=== PATIENT | female | born 1955 | race Caucasian/White ===

== ENCOUNTER 2017-05-11 22:43 | Inpatient (IN) | payer OTHER ==
[~2017-05-11] VITALS: Ht 162.6 cm; Wt 85.5 kg
[~2017-05-11 22:43] MED LIST: PERP8TAB; RISPERDAL CONSTA; ZYPR10TA; ZYPR15TA; cogentin
[2017-05-11] MEDS ORDERED: BENZ0.5T PO (22:54)
[2017-05-11] MEDS ORDERED: FLUP25VL PO (22:54)
[2017-05-11] MEDS ORDERED: ABIL1TAB13 PO (22:54)
[2017-05-11] MEDS ORDERED: NS 1,000 ML IV ONE (23:00)
[2017-05-11 23:33] LABS: BASO % 0.6 % (0.0-1.0); EOS # 0.1 K/mm3 (0.0-0.50); EOS % 2.8 % (0.0-3.0); LARGE UNSTAINED CELL # 0.1 K/mm3 (0.0-0.4); LYMPH # 1.1 K/mm3 (1.5-4.5); LYMPH % 21.7 % (24.0-44.0); MEAN CORPUSCULAR HEMOGLOBIN 31.3 pg (27.0-33.0); MEAN CORPUSCULAR HGB CONC 36.1 g/dl (32.0-36.5); MEAN CORPUSCULAR VOLUME 86.7 fl (80.0-96.0); MONO # 0.3 K/mm3 (0.0-0.8); MONO % 7.5 % (0.0-5.0); NEUTROPHILS % 65.4 % (36.0-66.0); PLATELET COUNT, AUTOMATED 149 k/mm3 (150-450); RED CELL DISTRIBUTION WIDTH 12.8 % (11.5-14.5); WHITE BLOOD COUNT 4.6 K/mm3 (4.0-10.0)
[2017-05-11 23:58] LABS: ALBUMIN 3.3 GM/DL (3.2-5.2); ALBUMIN/GLOBULIN RATIO 1.14 (1.00-1.93); ALKALINE PHOSPHATASE 63 U/L (45-117); ALT/SGPT 22 U/L (12-78); ANION GAP 11 MEQ/L (8-16); AST/SGOT 11 U/L (15-37); BILIRUBIN,DIRECT 0.1 MG/DL (0.0-0.2); BILIRUBIN,TOTAL 0.4 MG/DL (0.2-1.0); BLOOD UREA NITROGEN 8 MG/DL (7-18); CALCIUM LEVEL 8.5 MG/DL (8.8-10.2); CARBON DIOXIDE LEVEL 29 MEQ/L (21-32); CHLORIDE LEVEL 86 MEQ/L (98-107); CREATININE FOR GFR 0.46 MG/DL (0.55-1.02); GLOMERULAR FILTRATION RATE > 60.0 (>45); GLUCOSE, FASTING 139 MG/DL (80-110); POTASSIUM SERUM 3.6 MEQ/L (3.5-5.1); SODIUM LEVEL 126 MEQ/L (136-145); TOTAL PROTEIN 6.2 GM/DL (6.4-8.2)
[2017-05-12] MEDS ORDERED: ACETYLCYSTEINE 3,700 MG in D5W 500 ML IV ONE (00:15)
[2017-05-12] MEDS ORDERED: ACETYLCYSTEINE IV ONE ×2 (00:15→00:26)
[2017-05-12] MEDS ORDERED: D5W IV ONE ×2 (00:15→00:26)
[2017-05-12 01:59] LABS: METHADONE URINE NEGATIVE (NEGATIVE)
[2017-05-12] MEDS ORDERED: ONDANSETRON 4MG/2ML VIAL (J2405) As Ordered ONE (02:36)
[2017-05-12] MEDS ORDERED: ONDANSETRON 4MG/2ML VIAL (J2405) IV PRN (02:45)
[2017-05-12] MEDS: NS 1,000 ML IV SCH ×2 (03:15→11:28)
[2017-05-12] MEDS ORDERED: ACETYLCYSTEINE 7,300 MG in D5W 1,000 ML IV ONE (05:30)
[2017-05-12 07:27] LABS: INR 1.02
[2017-05-12 07:39] LABS: ALBUMIN/GLOBULIN RATIO 1.11 (1.00-1.93); ALKALINE PHOSPHATASE 53 U/L (45-117); ALT/SGPT 23 U/L (12-78); ANION GAP 12 MEQ/L (8-16); AST/SGOT 21 U/L (15-37); BILIRUBIN,TOTAL 0.5 MG/DL (0.2-1.0); BLOOD UREA NITROGEN 5 MG/DL (7-18); CALCIUM LEVEL 8.2 MG/DL (8.8-10.2); CARBON DIOXIDE LEVEL 27 MEQ/L (21-32); CHLORIDE LEVEL 89 MEQ/L (98-107); CREATININE FOR GFR 0.35 MG/DL (0.55-1.02); GLOMERULAR FILTRATION RATE > 60.0 (>45); GLUCOSE, FASTING 113 MG/DL (80-110); MAGNESIUM LEVEL 1.6 MG/DL (1.8-2.4); POTASSIUM SERUM 3.8 MEQ/L (3.5-5.1); SODIUM LEVEL 128 MEQ/L (136-145); TOTAL PROTEIN 5.7 GM/DL (6.4-8.2)
[2017-05-12 07:51] LABS: ADD MANUAL DIFFER YES; MEAN CORPUSCULAR HEMOGLOBIN 31.1 pg (27.0-33.0); MEAN CORPUSCULAR HGB CONC 36.4 g/dl (32.0-36.5); MEAN CORPUSCULAR VOLUME 85.5 fl (80.0-96.0); PLATELET COUNT, AUTOMATED 132 k/mm3 (150-450); RED CELL DISTRIBUTION WIDTH 12.6 % (11.5-14.5); WHITE BLOOD COUNT 5.3 K/mm3 (4.0-10.0)
--- NOTE | 2017-05-12 09:06 | HPE ---
DATE OF ADMISSION: 05/11/2017 HISTORY OF PRESENT ILLNESS: This patient is a 61-year-old female with a past medical history significant for schizophrenia with paranoia type was brought in by the today for medication overdose. Patient recently experienced trying to adapt to the news that her mother is very sick and in order to cope with the bad news patient started taking increase of her psychiatric medications. That occurred in the last few weeks. In and out she ran out of her psychiatric medication for many days. Psychiatrist felt very unsafe to give her a renewal due to uncertainty and amount of the psychiatric medications she has been taking. In the last 2 days patient became acting more strangely per patient's . Yesterday night patient's found three empty bottles of his medications and due to concern for adverse effect from the overdose he brought the patient to the hospital for further evaluation. Those three bottles are of Tylenol, alfuzosin and finasteride. The patient's does not remember the number of pills, but he estimates approximately 15 pills per bottle. When patient arrived to emergency room, patient was found to have a significantly elevated Tylenol level. The emergency department (ED) physician reached out to Poison Control and the patient started on acetylcysteine per recommendations. Hospitalist team was called for admission. During the encounter, patient is not able to answer the questions appropriately. Patient stated that she took, she admitted for taking medication more than usual. She did it because she tried to protect herself from overdose. ALLERGIES: No known drug allergies. PAST MEDICAL HISTORY: 1. Eczema. 2. Schizophrenia with paranoia type. PAST SURGICAL HISTORY: Bunionectomy. SOCIAL HISTORY: Denies smoking. Patient had a history of regular alcohol consumption, but patient does not drink alcohol on a regular basis now. No recreational drug use. REVIEW OF SYSTEMS: Denies any fever, chills. CARDIOVASCULAR: Denied any chest pain. RESPIRATORY: Denied any difficulty breathing. No cough. GASTROINTESTINAL: No abdominal pain. No nausea. No vomiting. OBJECTIVE: VITAL SIGNS: Temperature 98.4, pulse 86, respirations 18, blood pressure 131/65, pulse oximetry is 99% in room air. GENERAL: Patient is alert and awake, able to answer questions, but not approproiately. No sign of acute distress. HEENT: Normocephalic, atraumatic. Extraocular motor grossly intact. CARDIOVASCULAR: Positive S1, S2, regular rate. LUNGS: Clear to auscultation bilaterally. ABDOMEN: Soft, nontender, nondistended, bowel sounds present. No rebound. No guarding. EXTREMITIES: No edema. No sign of cyanosis. NEUROLOGICAL: Sensation to fine touch grossly intact. Muscle strength 5/5. LABORATORY DATA: WBC 4.6, hemoglobin 12.8, hematocrit 35.4, platelet count is 149. Sodium is 126, potassium 3.6, chloride 86, carbon dioxide is 29, BUN 8, creatinine 0.46, GFR greater than 60, fasting glucose 139, lactic acid 2.3, calcium 8.5, total bilirubin 0.4, direct bilirubin 0.1, AST 11, ALT 22, alkaline phosphatase 63, total CK 53, albumin 3.3, TSH 1.4. Toxicology shows Tylenol level of 83.7. Alcohol level is less than 0.003. ASSESSMENT AND PLAN: 1. Multidrug overdose. The patient will be admitted to the intensive care unit (ICU) under inpatient status. The three empty bottles found by patient's were Tylenol, alfuzosin and finasteride. Poison Control was contacted, recommended acetylcysteine. Will continue to follow patient's liver functions and monitor patient closely. Patient will be nothing by mouth, intravenous (IV) fluid. Patient will have a sitter. 2. History of schizophrenia with paranoia type. Currently will try to treat patient for the overdose and when appropriate once patient is more medically stable, will obtain a psychiatric consultation. 3. Deep venous thrombosis (DVT) prophylaxis. On thromboembolism deterrent stocking (MARCELL) sequential compression devices.
[2017-05-12 09:55] VITALS: BP 134/60
--- NOTE | 2017-05-12 10:23 | ECGEPIP ---
Stationary ECG Study [facility] - ED Test Date: 2017-05-11 Pat Name: SHANE VORA Department: Room: [place] [address] Gender: F Invasive Manager: kaveh : 1955 Requested By: STEPHANIE HOLLEY Order Number: [id number] Reading MD: Sarah Triana Measurements Intervals [place] Rate: 69 P: 47 NV: 163 QRS: 6 QRSD: 82 T: 26 QT: 406 QTc: 436 Interpretive Statements SINUS RHYTHM NO PRIOR FOR COMPARISON Electronically Signed On 05-12-2017 10:23:07 EDT by Sarah Triana
[2017-05-12 12:00] VITALS: BP 140/63
[2017-05-12 12:42] LABS: ALBUMIN 2.8 GM/DL (3.2-5.2); ALBUMIN/GLOBULIN RATIO 1.04 (1.00-1.93); BILIRUBIN,DIRECT 0.1 MG/DL (0.0-0.2); BILIRUBIN,TOTAL 0.4 MG/DL (0.2-1.0); TOTAL PROTEIN 5.5 GM/DL (6.4-8.2)
[2017-05-12 14:30] VITALS: BP 118/72
[2017-05-12 16:00] VITALS: BP 126/60
--- NOTE | 2017-05-12 17:03 | IPN ---
DATE: 05/12/2017 Ms. Avila is awake and interactive, requesting food and drink. Her is at bedside. Temperature is 97.8, pulse 76, respiratory rate 18, blood pressure 134/60, 99% on room air. She is awake, answering questions appropriately, somewhat variable mood and affect. Heart is distant sounding, regular rate and rhythm. Breathing is symmetrical and rested. I observed her to drink sulaiman belén from a straw without difficulty, change in voice, cough, or any complaint. Abdomen soft, doughy, nontender. White cell count 5.3, hemoglobin 12.4, platelets 132, BUN 5, creatinine 0.35, sodium 128. My assessment is as follows: This is a 61-year-old with multiple drug overdose. Plan is as follows: 1. Overdose. The patient is being followed by Poison Control, is on acetylcysteine. Tylenol level has dropped off. Liver function tests are repeated and pending. 2. The patient has history of schizophrenia and has been recently variably compliant with her medication. Will likely need an inpatient mental health stay. I did discuss this with the at bedside. 3. The patient has appropriate deep venous thrombosis (DVT) prophylaxis.
[2017-05-13] VITALS: BP 122/56
[2017-05-13] MEDS: NS 1,000 ML IV SCH (02:11)
[2017-05-13 04:00] VITALS: BP 136/62
[2017-05-13 05:23] LABS: BASO % 0.5 % (0.0-1.0); EOS # 0.1 K/mm3 (0.0-0.50); EOS % 1.7 % (0.0-3.0); LARGE UNSTAINED CELL # 0.1 K/mm3 (0.0-0.4); LARGE UNSTAINED CELL % 2.5 % (0.0-4.0); LYMPH # 0.9 K/mm3 (1.5-4.5); LYMPH % 17.5 % (24.0-44.0); MEAN CORPUSCULAR HEMOGLOBIN 31.9 pg (27.0-33.0); MEAN CORPUSCULAR HGB CONC 36.4 g/dl (32.0-36.5); MEAN CORPUSCULAR VOLUME 87.5 fl (80.0-96.0); MONO # 0.4 K/mm3 (0.0-0.8); NEUTROPHILS # 3.6 K/mm3 (1.8-7.7); NEUTROPHILS % 70.8 % (36.0-66.0); PLATELET COUNT, AUTOMATED 134 k/mm3 (150-450); RED CELL DISTRIBUTION WIDTH 12.7 % (11.5-14.5)
[2017-05-13 05:31] LABS: INR 1.03
[2017-05-13 05:48] LABS: ALBUMIN 2.9 GM/DL (3.2-5.2); ALKALINE PHOSPHATASE 56 U/L (45-117); ALT/SGPT 20 U/L (12-78); ANION GAP 6 MEQ/L (8-16); AST/SGOT 13 U/L (15-37); BILIRUBIN,TOTAL 0.3 MG/DL (0.2-1.0); BLOOD UREA NITROGEN 6 MG/DL (7-18); CALCIUM LEVEL 8.5 MG/DL (8.8-10.2); CARBON DIOXIDE LEVEL 27 MEQ/L (21-32); CHLORIDE LEVEL 102 MEQ/L (98-107); GLOMERULAR FILTRATION RATE > 60.0 (>45); GLUCOSE, FASTING 84 MG/DL (80-110); MAGNESIUM LEVEL 1.6 MG/DL (1.8-2.4); POTASSIUM SERUM 3.8 MEQ/L (3.5-5.1); SODIUM LEVEL 135 MEQ/L (136-145); TOTAL PROTEIN 5.8 GM/DL (6.4-8.2)
[2017-05-13 07:57] VITALS: BP 141/67
--- NOTE | 2017-05-13 15:24 | DSES ---
DATE OF ADMISSION: 05/12/2017 DATE OF DISCHARGE: 05/13/2017 SPECIALISTS INVOLVED IN CARE: Include Elo Johnson MD. No complications during stay. No procedures performed during her stay. DISCHARGE DIAGNOSES: 1. Polysubstance overdose. 2. Tylenol overdose. 3. Schizophrenia. 4. Eczema. 5. Noncompliance with medications. FOLLOWING IS A SUMMARY OF HER PRESENTATION: A 61-year-old who has had some social stressors with her mother being sick, has been off her medications for schizophrenia, and took an overdose of Tylenol and her 's prostate medication. She was admitted to the hospitalist service and was given a course of N-acetylcysteine. Was seen in consultation by psychiatry with plans for transfer to the inpatient mental health unit. On the day of discharge, she is feeling well. She is tolerating diet. She has no complaints of pain. No nausea. No vomiting. No chest pain. Temperature is 98.0, pulse 93, respiratory rate 18, blood pressure 141/67, 99% on room air. Awake, appropriately interactive, pleasantly conversant. Somewhat flattened affect. She is easily distractible. Mucous membranes moist. Neck supple, thick. Breathing is symmetrical. I-to-E ratio is 1:3. Heart is in a regular rate and rhythm. No significant arrhythmia on monitor. Abdomen soft, doughy, nontender. White cell count 5, hemoglobin 12.3, and platelets of 134. BUN 6, creatinine 0.4. DISCHARGE INSTRUCTIONS: Include the followin. Discontinue all previous medications. 2. Followup with primary care upon discharge from inpatient mental health unit ([facility]). Edited: [facility] 05/14/2017 [id number]
[2017-05-13] MEDS ORDERED: ABIL1TAB13 PO (17:47)
[2017-05-13] MEDS ORDERED: ABIL1TAB11 PO (17:47)
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
[2017-05-13] MEDS ORDERED: BENZTROPINE 0.5 MG TAB PO ONE (18:30)
[2017-05-14] MEDS ORDERED: BENZ0.5T PO (17:37)
== END 2017-05-13 19:55 | disposition home or self-care (01) | DRG 812 ==
LOC: M ED 22:43 → M ED INP 05-12 01:11 → M PCU 05-12 14:23
PROVIDERS: ADMIT Internal Medicine; ATTEND Internal Medicine
DX: T39.1X2A Poisoning by 4-Aminophenol derivatives, intentional self-harm, initial encounter (principal); F20.0 Paranoid schizophrenia; T44.8X2A Poisoning by centrally-acting and adrenergic-neuron-blocking agents, intentional self-harm, initial encounter; Z91.14 Patient's other noncompliance with medication regimen; Z79.899 Other long term (current) drug therapy; T50.902A Poisoning by unspecified drugs, medicaments and biological substances, intentional self-harm, initial encounter